=== PATIENT | male | born 1995 | race Caucasian/White ===

== ENCOUNTER 2021-10-22 11:07 | Emergency (ER) | payer SELFPAY ==
[2021-10-22 12:27] VITALS: BP 041/86
== END 2021-10-22 15:05 | disposition left against medical advice (07) ==
LOC: ED 11:07
DX: L98.499 Non-pressure chronic ulcer of skin of other sites with unspecified severity (principal); Z53.21 Procedure and treatment not carried out due to patient leaving prior to being seen by health care provider